=== PATIENT | female | born 1995 | race Hispanic/Latino ===

== ENCOUNTER 2016-10-12 17:39 | Inpatient (IN) | payer OTHER ==
[~2016-10-12] VITALS: Ht 147.3 cm; Wt 65.0 kg
[2016-10-12 18:10] VITALS: BP 127/95
[2016-10-12 18:14] VITALS: BP 127/95
[2016-10-12] MEDS ORDERED: PRENTAB9 PO (18:42)
[2016-10-12 19:01] VITALS: BP 121/79
--- NOTE | 2016-10-12 19:19 | IPNPDOC ---
Obstetrical Progress Note Date of Service The patient was seen on 10/12/16 at 19:10. Progress Note TRIAGE NOTE [id number] @ 1845 21 yo @ 33+4 by LMP presents to triage with c/o LOF about an hour ago described as white and milky. Reports she hasn't felt the baby move since the LOF, states she is having CTX every 15-20 min that aren't very painful. Denies VB. S: resting in bed in semi-recumbant. denies pain or discomfort. Denies having IC for the last 3 months O: vietnamese speaking only. She brought a friend and requested she translate. VS- WNL, afebrile FHR- 170, minimal variability, + accels, no decels CTX- none, resting tone palpated as mild Valsalva- negative Pooling- negative Nitrazine- positive GC- swab done and sent GBS- swab done and sent FFN- swab done and sent SVE- closed/thick/high Limited OB US- SIUP, + CA, VTX, + FM, HAILEY- 9.46 cm Wet mount- neg clue cells, neg trich ROGELIO- negative fungal elements Ferning- negative A: 21 yo @ 33+4 by LMP. Membranes intact, tachycardia, not in PTL P: continue to assess and monitor. Report given to Dr. Castillo @ 1910. VS, I&O, 24H, Fishbone Vital Signs/I&O Vital Signs Date Time Temp Pulse Resp B/P Pulse Ox O2 Delivery O2 Flow Rate FiO2 10/12/16 18:14 121 127/95 10/12/16 18:10 99.0 20 LORETTA HEWITT CNM Oct 12, 2016 19:19
[2016-10-12 19:22] VITALS: BP 132/86
[2016-10-12] MEDS ORDERED: LR 1,000 ML IV SCH (20:42)
[2016-10-12 21:15] LABS: BASO % 0.2 % (0.0-1.0); EOS % 0.3 % (0.0-3.0); LARGE UNSTAINED CELL # 0.2 K/mm3 (0.0-0.4); LARGE UNSTAINED CELL % 1.1 % (0.0-4.0); LYMPH # 1.9 K/mm3 (1.5-6.5); LYMPH % 12.3 % (24.0-44.0); MEAN CORPUSCULAR HEMOGLOBIN 30.4 pg (27.0-33.0); MEAN CORPUSCULAR HGB CONC 33.3 g/dl (32.0-36.5); MEAN CORPUSCULAR VOLUME 91.3 fl (80.0-96.0); MONO # 0.7 K/mm3 (0.0-0.8); MONO % 4.3 % (0.0-5.0); NEUTROPHILS # 12.5 K/mm3 (1.8-7.7); NEUTROPHILS % 81.7 % (36.0-66.0); PLATELET COUNT, AUTOMATED 309 k/mm3 (150-450); RED CELL DISTRIBUTION WIDTH 13.7 % (11.5-14.5); WHITE BLOOD COUNT 15.2 K/mm3 (4.0-10.0)
[2016-10-12] MEDS ORDERED: BETAMETHASONE SOLUSPAN 6MG/ML INJ 5ML (J0702) IM SCH (21:30)
[2016-10-12 23:26] VITALS: BP 109/64
[2016-10-13] VITALS (12 sets, daily range): BP systolic 109–129; BP diastolic 50–82
[2016-10-13] MEDS: ACETAMINOPHEN 500 MG TAB PO PRN ×2 (00:56→12:07)
[2016-10-13] MEDS ORDERED: AZITHROMYCIN 250 MG TAB PO ONE (04:00)
[2016-10-13] MEDS: AMPICILLIN SOD 2 GM in D5W MINI-BAG PLUS 100 ML IV SCH ×3 (04:09→16:15)
[2016-10-13] MEDS ORDERED: BETAMETHASONE SOLUSPAN 6MG/ML INJ 5ML (J0702) IM ONE (09:00)
[2016-10-13] MEDS ORDERED: PRENATAL VITAMIN TAB PO SCH (09:00)
[2016-10-13] MEDS ORDERED: BUTORPHANOL 2 MG/ML INJ (J0595) IV ONE ×2 (09:00→16:30)
[2016-10-13] MEDS ORDERED: OXYTOCIN 30 UNITS IN 0.9% NaCl 500ML IV BAG (J2590) As Ordered ONE (17:57)
[2016-10-13] MEDS ORDERED: OXYTOCIN DRIP 30 UNITS in APPROPRIATE DILUENT 1 EA IV SCH (19:27)
[2016-10-13] MEDS ORDERED: DOCUSATE SODIUM 100 MG CAP PO PRN (19:30)
[2016-10-13] MEDS ORDERED: RHOGAM 300 MCG (1500 IU) INJ (J2790) IM SCH (19:30)
[2016-10-13] MEDS ORDERED: IBUPROFEN 800 MG TAB PO PRN (19:30)
[2016-10-13] MEDS ORDERED: METHYLERGONOVINE MALEATE 0.2 MG TAB PO PRN (19:30)
[2016-10-13] MEDS ORDERED: MEASLES,MUMPS,RUBELLA VACCINE INJ (MMR-II) (90707) SC SCH (19:30)
[2016-10-13] MEDS ORDERED: DIBUCAINE 1% OINTMENT 30GM TOP PRN (19:30)
[2016-10-13] MEDS ORDERED: PROMETHAZINE 25 MG TAB PO PRN (19:30)
[2016-10-13 19:44] LABS: CORD GAS ABE A -9.5; CORD GAS HCO3 A 17.2 MEQ/L; CORD GAS O2 SAT A 53.5 %; CORD GAS PCO2 A 40.1 mmHg; CORD GAS PH A 7.249 UNITS; CORD GAS PO2 A 24.5 mmHg; CORD GAS SBC A 16.1 MEQ/L; CORD GAS TCO2 A 18.4 MEQ/L
[2016-10-13 19:45] LABS: CORD GAS ABE V -9.3; CORD GAS HCO3 V 16.3 MEQ/L; CORD GAS O2 SAT V 61.5 %; CORD GAS PCO2 V 35.4 mmHg; CORD GAS PH V 7.282 UNITS; CORD GAS PO2 V 26.1 mmHg; CORD GAS SBC V 16.4 MEQ/L; CORD GAS TCO2 V 17.4 MEQ/L
[2016-10-14 06:36] VITALS: BP 100/53
--- NOTE | 2016-10-14 07:28 | IPNPDOC ---
Text Note Date of Service The patient was seen on 10/14/16. NOTE Jennifer is a 21yo doing well on PPD 1 s/p uncomplicated last night at 1659 at 33w4d after presenting with PROM. She would like to breastfeed but has not yet started pumping, baby in NICU for routine care related to prematurity. Lochia normal, spontaneously voiding and ambulating without difficulty. Tolerating regular diet. Denies f/c/n/v/SOB/CP/CASTELLANO/abdominal pain. Vitals wnl, afebrile Exam: General: WDWN, NAD, resting comfortably Cardiac: S1S2 present, no murmur Lungs: CTAB without wheeze/crackles Abdomen: soft, NTTP, fundus firm u-2cm Extremities: no tenderness of calves bilaterally Assessment: Jennifer is a 21yo doing well on PPD 1 s/p uncomplicated last night at 1659 at 33w4d after presenting with PROM. No e/o infection, hemodynamically stable. Plan: -routine care -tylenol/motrin prn pain -regular diet -encourage ambulation, /breast-pumping -discharge to home (vs boarding while infant in NICU) likely tomorrow Dr. Frank Morfin MD [place] DAV[place] VS,Venus, I+O VSVenus, I+O Vital Signs Date Time Temp Pulse Resp B/P Pulse Ox O2 Delivery O2 Flow Rate FiO2 10/14/16 06:36 98.0 99 16 100/53 I&O- Last 24 Hours up to 6 AM 10/14/16 06:00 Output Total 800 ml Balance -800 ml FRANK MORFIN MD Oct 14, 2016 07:28
[2016-10-14 18:08] VITALS: BP 110/62
[2016-10-14 19:56] VITALS: BP 110/62
[2016-10-15 06:13] VITALS: BP 100/55
[2016-10-15] MEDS ORDERED: DIBU1OIN TOP (09:05)
[2016-10-15] MEDS ORDERED: IBUP-1114 PO (09:05)
[2016-10-15] MEDS ORDERED: COLA100C PO (09:05)
--- NOTE | 2016-10-15 13:55 | DSES ---
DATE OF ADMISSION: 10/12/2016 DATE OF DISCHARGE: A 21-year-old. 4, now para 1. admitted at 33 weeks and 4 days for extended monitoring because of a category 2 strip and rupture of membranes. She eventually had a spontaneous vaginal delivery of a live male weighing 4 pounds 13 ounces, 2184 grams. Arterial pH 7.24, base excess -9.5, venous pH 7.28, base excess -9.3. On her second day, we discussed phlebitis, cystitis, mastitis, endometritis, cellulitis, diet, exercise, pain management, perineal, breast, and wound care. Blood pressure is 100/55, respirations 16, pulse 88, temperature 97.3. Her hemoglobin is 13.1, hematocrit 39.4, and platelets were 309. She is not sure whether they are using anything for control, but her medications we have given on discharge. She is going to be placed in the parent call room at intensive care unit (NICU). The baby will be here for 2-3 weeks. She is breast-feeding. She was given a breast pump requisition. The rest the examination unremarkable. She is normocephalic, atraumatic. Neck: Full range of motion. Pupils equal and reactive to light. Distal pulses are symmetric. No evidence of CT, pulmonary embolism (PE), or superficial phlebitis. Chest is clear bilaterally to bases. No wheezes or rhonchi. Uterus 2 below. Lochia is moderate. Perineum is intact. No rashes, lesions, pruritus, arthralgia, myalgia. No complaints of cough, wheeze, shortness of breath, or dyspnea on exertion. She is not bleeding. Neuro complete. No incontinence, urgency, or frequency. No nausea, vomiting, diarrhea, or constipation. Breast-feeding is going well. She does not smoke or drink. Does not abuse drugs. She is to a soldier, and there is no domestic violence. In summary, we have a pretermer with premature rupture of membranes. Delivered a live male infant. Presently in NICU for approximately 1-2 weeks. She will be discharged with medications.
== END 2016-10-15 11:00 | disposition home or self-care (01) | DRG 775 ==
LOC: M LDO 17:39 → M OBS 20:41 → M LDI 21:26 → M OBS 10-13 21:11
PROVIDERS: ADMIT Obstetrics & Gynecology; ATTEND Obstetrics & Gynecology
PROC: 10E0XZZ Delivery of Products of Conception, External Approach (ICD-10-PCS; principal; 2016-10-13)
DX: O42.013 Preterm premature rupture of membranes, onset of labor within 24 hours of rupture, third trimester (principal); O60.14X0 Preterm labor third trimester with preterm delivery third trimester, not applicable or unspecified; Z37.0 Single live birth; Z3A.33 33 weeks gestation of pregnancy; Z79.899 Other long term (current) drug therapy

== ENCOUNTER → 2017-03-26 | Outpatient (CLI) | payer OTHER ==
[~2017-03-26] MED LIST: COLA100C5 PO; DIBU1OIN TOP; IBUP-1114 PO; PRENTAB9 PO
--- NOTE | 2017-03-26 20:01 | REP ---
Obstetric sonography: History: Evaluate for ectopic . Findings: Transabdominal and transvaginal scanning are performed. Uterine dimensions are normal at 8.2 x 3.7 x 5.3 cm. Endometrial echo is 1.8 cm. No focal uterine mass is seen. No intrauterine gestation is seen. Trace of fluid is seen in the endometrium. There is also a trace of cul-de-sac fluid to the right. Normal ovaries are seen. No adnexal mass is seen. The right ovary measures 2.7 x 1.7 x 2.5 cm. Left ovarian dimensions are 2.5 x 1.8 x 2.9 cm. Resistive indices by Doppler are normal at 0.46 on the right and 0.50 on the left. Impression: Empty uterus, no adnexal mass or significant free fluid. Normal ovaries seen. Nonspecific sonography. Clinical and possibly sonographic followup suggested. Signed by Blu Adams MD 03/30/2017 08:19 A
== END ==
LOC: M RAD 14:30
PROVIDERS: ATTEND Midwife
DX: O26.891 Other specified pregnancy related conditions, first trimester (principal)